=== PATIENT | male | born 1970 | race Caucasian/White ===

== ENCOUNTER 2024-05-31 12:54 | Observation (INO) | payer OTHER ==
[~2024-05-31] VITALS: Ht 167.6 cm; Wt 88.5 kg
[2024-05-31] MEDS ORDERED: LIDOCAINE HCL 1% LOCAL INJ 20 ML VIAL ONE (13:20)
[2024-05-31] MEDS ORDERED: BUPIVACAINE HCL 0.25% 10ML MPF VIAL INJ ONE (13:21)
[2024-05-31 13:22] VITALS: PULSE 103; RESP 19; TEMP 98.3
[2024-05-31 13:58] LABS: BASOPHILS # (AUTO) 0.1 (0.0-0.1); BASOPHILS % 1.1 % (0.0-1.0); EOSINOPHILS # (AUTO) 0.3 (0.0-0.4); EOSINOPHILS % 4.1 % (0.0-6.0); HEMATOCRIT 49.8 % (38.2-49.6); HEMOGLOBIN 16.4 g/dL (14.0-18.0); LYMPHOCYTES # (AUTO) 2.4 (1.0-3.2); LYMPHOCYTES % 33.6 % (18.0-39.1); MEAN CORPUSCULAR HEMOGLOBIN 29.1 pg (28-32); MEAN CORPUSCULAR HGB CONC 32.9 g/dL (31-35); MEAN CORPUSCULAR VOLUME 88.5 fL (81-99); MONOCYTES # (AUTO) 0.6 (0.2-0.8); MONOCYTES % 7.6 % (4.4-11.3); NEUTROPHILS # (AUTO) 3.9 (2.1-6.9); NEUTROPHILS % 53.3 % (38.7-80.0); PLATELET COUNT 319 x10e3/uL (140-360); RED BLOOD COUNT 5.63 x10e6/uL (4.3-5.7); RED CELL DISTRIBUTION WIDTH 13.3 % (11.7-14.4); WHITE BLOOD COUNT 7.27 x10e3/uL (4.8-10.8)
[2024-05-31 14:06] LABS: INR 0.93
[2024-05-31 14:07] LABS: PARTIAL THROMBOPLASTIN TIME 25.6 seconds (23.8-35.5)
[2024-05-31 14:13] LABS: ALBUMIN 4.5 g/dL (3.5-5.0); ALBUMIN/GLOBULIN RATIO 1.6 (0.8-2.0); ANION GAP 16.9 mmol/L (8-16); BILIRUBIN,TOTAL 1.4 mg/dL (0.2-1.2); CALCIUM 10.1 mg/dL (8.4-10.2); CREATININE, SERUM 1.07 mg/dL (0.72-1.25); POTASSIUM 3.9 mmol/L (3.5-5.1); TOTAL PROTEIN 7.4 g/dL (6.5-8.1)
[2024-05-31] MEDS: TETANUS/DIPHTHERIA TOX ADULT 0.5 ML SYR IM ONE (14:17)
[2024-05-31] MEDS: Morphine 4mg INJECTION 4 MG/ML INJ IV STA (14:18)
[2024-05-31] MEDS: ONDANSETRON HCL INJ 2MG/ML 2ML 2 MG/ML VIAL IV STA (14:19)
[2024-05-31] MEDS: KETOROLAC TROMETHAMINE 30 MG/ML VIAL IV STA (14:19)
[2024-05-31] MEDS: SODIUM CHLORIDE 0.9% 1000ML 1,000 ML IV STA (14:20)
[2024-05-31] MEDS ORDERED: MIDAZOLAM HCL 2 MG/2 ML VIAL ONE (15:28)
[2024-05-31] MEDS ORDERED: FENTANYL CITRATE/PF 100MCG/2 ML INJ ONE ×2 (15:28→16:54)
[2024-05-31] MEDS ORDERED: LIDOCAINE HCL 2% LOCAL INJ 5 ML SDV VIAL INJ ONE (15:28)
[2024-05-31] MEDS ORDERED: PROPOFOL IV EMULSION 10 MG/ML 20 ML VIAL ONE (15:32)
[2024-05-31] MEDS ORDERED: ROCURONIUM BROMIDE 1 ML IV ONE (15:35)
[2024-05-31] MEDS ORDERED: DEXAMETHASONE SOD PHOS INJ 4 MG/ML SDV ONE (15:43)
[2024-05-31] MEDS ORDERED: GLYCOPYRROLATE INJ 0.2 MG/ML VIAL ONE (16:41)
[2024-05-31] MEDS ORDERED: NEOSTIGMINE 1 MG/ML 10ML VIAL ONE (16:41)
[2024-05-31] MEDS ORDERED: ONDANSETRON HCL INJ 2MG/ML 2ML 2 MG/ML VIAL ONE (16:43)
[2024-05-31] MEDS ORDERED: ACETAMINOPHEN 1000 MG/100 ML 100 ML IV ONE (16:46)
[2024-05-31 17:06] VITALS: TEMP 98.5
[2024-05-31] MEDS ORDERED: HYDROCODONE/APAP 7.5MG-325MG 1 EA TAB ONE (17:33)
[2024-05-31] MEDS: HYDROCODONE/APAP 7.5MG-325MG 1 EA TAB PO ONE (17:37)
[2024-05-31 17:50] VITALS: BP 138/89
[2024-06-01 06:57] VITALS: PULSE 74; RESP 20; O2SAT 96
== END 2024-05-31 18:00 | disposition home or self-care (01) ==
LOC: ER 13:06 → ERHOLD 14:49
PROVIDERS: ADMIT Internal Medicine; ATTEND Internal Medicine
DX: S62.390B Other fracture of second metacarpal bone, right hand, initial encounter for open fracture (principal); S66.320A Laceration of extensor muscle, fascia and tendon of right index finger at wrist and hand level, initial encounter; S63.650A Sprain of metacarpophalangeal joint of right index finger, initial encounter; W27.0XXA Contact with workbench tool, initial encounter; Z23 Encounter for immunization
CPT/HCPCS: 26418 ×2; 26540; 36415; 73130; 80053; 85025; 85610; 85730; 90471; 90714; 99284; G0378; J0131; J0690; J1100; J1885; J2003 ×2; J2250; J2270; J2405; J2704; J2710; J3010; J7030; 94799

== ENCOUNTER 2024-07-01 09:00 | Outpatient (RCR) | payer OTHER | END 2024-07-02 | LOC: OT 09:00 | PROVIDERS: ATTEND Orthopaedic Surgery Hand Surgery | DX: S66.921A Laceration of unspecified muscle, fascia and tendon at wrist and hand level, right hand, initial encounter (principal) | CPT/HCPCS: 97010 ×5; 97110 ×6; 97112; 97140 ×4; 97165; 97763; L3808 ==

== ENCOUNTER → 2024-08-02 | Outpatient (RCR) | payer OTHER | LOC: OT 07-05 08:23 | PROVIDERS: ATTEND Orthopaedic Surgery Hand Surgery | DX: S66.921A Laceration of unspecified muscle, fascia and tendon at wrist and hand level, right hand, initial encounter (principal) ==

== ENCOUNTER 2024-08-19 09:00 | Outpatient (RCR) | payer OTHER | END 2024-08-30 | LOC: OT 09:00 | PROVIDERS: ATTEND Orthopaedic Surgery Hand Surgery | DX: S66.921A Laceration of unspecified muscle, fascia and tendon at wrist and hand level, right hand, initial encounter (principal) ==